=== PATIENT | female | born 1990 | race Two or more races ===

== ENCOUNTER 2018-01-04 08:30 | Emergency (ER) | payer OTHER, MEDICAID ==
[~2018-01-04] VITALS: Ht 165.1 cm; Wt 53.0 kg
[2018-01-04] MEDS ORDERED: DESO1TAB35 PO (08:50)
[2018-01-04 10:05] VITALS: BP 106/72
== END 2018-01-04 10:50 | disposition home or self-care (01) ==
LOC: ED 09:42
DX: S00.03XA Contusion of scalp, initial encounter (principal); S00.531A Contusion of lip, initial encounter; S60.221A Contusion of right hand, initial encounter; Y04.0XXA Assault by unarmed brawl or fight, initial encounter; Y93.89 Activity, other specified; Y92.89 Other specified places as the place of occurrence of the external cause; Y99.8 Other external cause status
CPT/HCPCS: 70450; 70486; 72125; 99284

== ENCOUNTER 2018-10-25 20:46 | Observation (INO) | payer OTHER ==
[~2018-10-25] VITALS: Ht 165.1 cm; Wt 58.1 kg
[~2018-10-25 20:46] MED LIST: DESO1TAB72 PO
[2018-10-25 21:13] LABS: MICROSCOPIC INDICATED
[2018-10-25] MEDS ORDERED: OXYcodone/APAP 5/325MG TABLET ONE (21:48)
[2018-10-25] MEDS ORDERED: ONDANSETRON 2MG/ML, 2ML ONE (21:54)
[2018-10-25] MEDS: LACTATED RINGERS 1,000 ML IV SCH (21:57)
[2018-10-25] MEDS ORDERED: ONDANSETRON 2MG/ML, 2ML IVPush PRN (22:00)
[2018-10-25] MEDS ORDERED: ACETAMINOPHEN 325 MG TABLET PO PRN (22:00)
[2018-10-25] MEDS ORDERED: OXYcodone/APAP 5/325MG TABLET PO PRN (22:00)
[2018-10-25] MEDS ORDERED: LACTATED RINGERS 1,000 ML IV SCH (22:00)
[2018-10-25] MEDS: CEFAZOLIN 2,000 MG in SODIUM CHLORIDE 0.9% 50 ML IV SCH (22:49)
[2018-10-25] MEDS ORDERED: DIPHENHYDRAMINE 25 MG CAPSULE PO PRN (23:00)
[2018-10-25] MEDS ORDERED: PREN1TAB60 PO (23:22)
[2018-10-25] MEDS ORDERED: IRON1TAB60 PO (23:23)
[2018-10-25] MEDS ORDERED: CYAN1TAB29 PO (23:24)
[2018-10-26] MEDS: CEFAZOLIN 2,000 MG in SODIUM CHLORIDE 0.9% 50 ML IV SCH ×4 (04:58→22:59)
[2018-10-26] MEDS: LACTATED RINGERS 1,000 ML IV SCH (06:29)
[2018-10-26 06:46] LABS: BASOPHILS # (AUTO) 0.04 x10^3/uL (0-0.1); BASOPHILS % (AUTO) 0 % (0-1); EOSINOPHILS # (AUTO) 0.19 x10^3/uL (0-0.4); EOSINOPHILS % (AUTO) 2 % (1-7); LYMPHOCYTES # (AUTO) 1.57 x10^3/uL (1-3.4); LYMPHOCYTES % (AUTO) 13 % (22-44); MD NO; MEAN CORPUSCULAR HEMOGLOBIN 29.6 pg (27.0-34.8); MEAN CORPUSCULAR HGB CONC 34.8 g/dL (32.4-35.8); MEAN CORPUSCULAR VOLUME 84.9 fL (80-100); MEAN PLATELET VOLUME 8.4 fL (7.4-10.4); MONOCYTES # (AUTO) 0.87 x10^3/uL (0.2-0.8); MONOCYTES % (AUTO) 7 % (2-9); NEUTROPHILS % (AUTO) 78 % (42-75); PLATELET COUNT 196 x10^3/uL (130-400); RED BLOOD COUNT 3.69 x10^6/uL (3.82-5.3)
[2018-10-26 06:54] LABS: ALANINE AMINOTRANSFERASE 22 U/L (12-78); ALBUMIN 2.8 g/dL (3.4-5.0); ANION GAP 5 mmol/L (5-15); CALCIUM 8.1 mg/dL (8.5-10.1); CHLORIDE 110 mmol/L (98-107)
[2018-10-26 06:56] LABS: ALKALINE PHOSPHATASE 64 U/L (45-117); BILIRUBIN,TOTAL 0.3 mg/dL (0.2-1.0); CREATININE 0.58 mg/dL (0.55-1.02); TOTAL PROTEIN 5.9 g/dL (6.4-8.2)
[2018-10-27] MEDS: CEFAZOLIN 2,000 MG in SODIUM CHLORIDE 0.9% 50 ML IV SCH ×2 (05:01→11:09)
== END 2018-10-27 13:58 | disposition home or self-care (01) ==
LOC: LDOP 20:46 → INTOOBSV 21:50 → LDIP 21:50
PROVIDERS: ADMIT Obstetrics & Gynecology; ATTEND Obstetrics & Gynecology
DX: O26.892 Other specified pregnancy related conditions, second trimester (principal); R10.9 Unspecified abdominal pain; Z87.442 Personal history of urinary calculi; Z3A.24 24 weeks gestation of pregnancy
CPT/HCPCS: 36415; 76770; 80053; 81001; 85025; 87077; 87086; 87186; 96365; 96366; 96375; G0378; G0379; J0690; J2405; J7120

== ENCOUNTER 2018-12-21 22:09 | Outpatient (CLI) | payer SELFPAY ==
[~2018-12-21] VITALS: Ht 165.1 cm; Wt 70.0 kg
[~2018-12-21 22:09] MED LIST changes: +CYAN1TAB29 PO; +IRON1TAB60 PO; +PREN1TAB60 PO
[2018-12-21 22:26] VITALS: BP 112/56
[2018-12-21 22:31] LABS: MICROSCOPIC NOT IND
[2018-12-21 22:43] LABS: AMPHETAMINE SCREEN, URINE Negative (Negative); BARBITURATE SCREEN, URINE Negative (Negative); BENZODIAZEPINE SCREEN, URINE Negative (Negative); CANNABINOID SCREEN, URINE Negative (Negative); COCAINE SCREEN, URINE Negative (Negative); METHADONE SCREEN, URINE Negative (Negative); OPIATE SCREEN, URINE Negative (Negative)
== END 2018-12-21 23:20 | disposition home or self-care (01) ==
LOC: LDOP 22:09
PROVIDERS: ATTEND Obstetrics & Gynecology
DX: O26.893 Other specified pregnancy related conditions, third trimester (principal); R10.9 Unspecified abdominal pain; Z3A.32 32 weeks gestation of pregnancy
CPT/HCPCS: 59025; 80307; 81003; 87086; 99211; G0463

== ENCOUNTER 2019-10-04 00:06 | Emergency (ER) | payer MEDICAID ==
[~2019-10-04] VITALS: Ht 165.1 cm; Wt 59.7 kg
[~2019-10-04 00:06] MED LIST changes: -DESO1TAB72 PO; +DESO1TAB89 PO
[2019-10-04 00:11] VITALS: BP 121/86
[2019-10-04] MEDS ORDERED: LIDOCAINE 1%-EPI 1:100K, 20ML ONE (00:29)
[2019-10-04] MEDS ORDERED: LIDOCAINE 1%-EPI 1:100K, 20ML INFIL ONE (00:30)
[2019-10-04] MEDS ORDERED: HYDROcodone/APAP 5/325 TABLET PO ONE (00:30)
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
[2019-10-04] MEDS ORDERED: HYDROcodone/APAP 5/325 TABLET ONE (00:49)
--- NOTE | 2019-10-04 01:37 | NUR ---
PT RESTING COMFORTABLY IN [place] AT THIS TIME; PT DENIES ANY NEEDS AT THIS TIME.
[2019-10-04] MEDS ORDERED: BUPIVACAINE 0.25% ONE (03:01)
--- NOTE | 2019-10-04 03:45 | NUR ---
DR NUÑEZ AT FOR SUTURE OF PT LAC.
--- NOTE | 2019-10-04 04:27 | NUR ---
REPORT OF PT TO ROCHELLE FORBES.
[2019-10-04] MEDS ORDERED: BACITRACIN OINT 500U/GM, 28GM EXT ONE (04:30)
== END 2019-10-04 04:43 | disposition home or self-care (01) ==
LOC: ED 01:06
DX: S01.511A Laceration without foreign body of lip, initial encounter (principal); S03.2XXA Dislocation of tooth, initial encounter; Y04.8XXA Assault by other bodily force, initial encounter; Y93.89 Activity, other specified; Y92.098 Other place in other non-institutional residence as the place of occurrence of the external cause; Y99.8 Other external cause status
CPT/HCPCS: 12051; 70486; 99285

== ENCOUNTER 2020-10-25 23:54 | Emergency (ER) | payer MEDICAID ==
[~2020-10-25] VITALS: Ht 165.1 cm; Wt 56.0 kg
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
[2020-10-26] MEDS ORDERED: LIDOCAINE-MPF 1%, 5ML ONE (00:12)
--- NOTE | 2020-10-26 00:26 | NUR ---
BREAK RN: [employer] IN ROOM
[2020-10-26] MEDS ORDERED: LIDOCAINE 1%, 10ML INFIL ONE (00:30)
[2020-10-26 00:59] VITALS: BP 97/56
== END 2020-10-26 01:01 | disposition home or self-care (01) ==
LOC: ED 10-26 00:24
DX: S61.101A Unspecified open wound of right thumb with damage to nail, initial encounter (principal); Y04.2XXA Assault by strike against or bumped into by another person, initial encounter; Y93.89 Activity, other specified; Y92.009 Unspecified place in unspecified non-institutional (private) residence as the place of occurrence of the external cause; Y99.8 Other external cause status
CPT/HCPCS: 99283; 99284